=== PATIENT | female | born 1975 | race Caucasian/White ===

== ENCOUNTER → 2016-08-14 | Outpatient (CLI) | payer BC ==
[~2016-08-14] MED LIST: IBUP-103 PO; MULT-240 PO; PENI-82 PO
--- NOTE | 2016-08-14 15:21 | MAMMOGRAPHY REPORT ---
UNILATERAL RIGHT DIGITAL DIAGNOSTIC MAMMOGRAM TOMOSYNTHESIS WITH CAD AND TARGETED RIGHT ULTRASOUND: 08/14/2016 CLINICAL HISTORY: Follow-up of probably benign 17 x 8 mm asymmetry in the superior posterior right b reast, only seen on the MLO view. Patient denies any new concerns of palpable abnormalities, focal pain or other new clinical findings. TECHNIQUE: Right breast 2-D digital and tomosynthesis images, right exaggerated lateral CC views wer e obtained. Current study was also evaluated with a Computer Aided Detection (CAD) system. COMPARISON: Comparison is made to exams dated: 02/14/2016 ultrasound and 02/14/2016 mammogram - [facility]. BREAST COMPOSITION: There are scattered areas of fibroglandular density in the right breast. FINDINGS: The asymmetry in the posterior slightly superior right breast on the MLO view is less con spicuous on the current exam and has the appearance of normal dense fibroglandular tissue on the isac osynthesis images. There is no evidence of spiculation, architectural distortion or clustered micro calcification. No other mass, architectural distortion or cluster of microcalcifications is seen th roughout the visualized right breast. Targeted ultrasound was performed throughout the lateral right breast as well as the 2:00 to 4:00 ax es. Normal islands of dense fibronodular tissue are seen without a discrete solid or cystic mass. IMPRESSION: ACR-BI-RADS CATEGORY 3: PROBABLY BENIGN, TARGETED ULTRASOUND ACR-BI-RADS CATEGORY 3: UT OBABLY BENIGN The asymmetry in the superior posterior right breast, only seen on the MLO view has the appearance o f normal glandular tissue on the current exam and no suspicious sonographic abnormality is identifie d in the right breast. Nevertheless, given that this asymmetry was identified on the patient's base line, another short interval follow-up diagnostic right mammogram with possible ultrasound is recomm ended to ensure at least one year stability. Annual left mammography will be due at that time. The se results and recommendations were discussed with the patient at the time of the exam. Approximately 10% of breast cancers are not detected with mammography. A negative mammographic repor t should not delay biopsy if a clinically suggestive mass is present. Marce Melgoza M.D. ay/:08/14/2016 09:10:54 Manufacturing Tech: Ian CHU)(Jose), [facility] letter sent: Follow Up Recommended 3 BI-RADS Code: ACR-BI-RADS Category 3: Probably Benign Ultrasound BI-RADS: ACR-BI-RADS Category 3: P robably Benign
== END | disposition home or self-care (01) ==
LOC: C.MAMM 08:08
PROVIDERS: ATTEND Internal Medicine
DX: N64.89 Other specified disorders of breast (principal)

== ENCOUNTER 2016-08-31 15:29 | Emergency (ER) | payer OTHER, BC ==
[~2016-08-31] VITALS: Ht 160 cm; Wt 88.0 kg
[2016-08-31 15:37] VITALS: TEMP 37.1; Ht 160 cm; Wt 88.0 kg
[2016-08-31] MEDS ORDERED: MULT-240 PO (16:34)
[2016-08-31] MEDS ORDERED: IBUP-103 PO (16:34)
[2016-08-31] MEDS ORDERED: PENI-82 PO (16:34)
--- NOTE | 2016-08-31 16:34 | DIAGNOSTIC IMAGING REPORT ---
LEFT FOOT MIN 3 VIEWS ROUTINE CLINICAL HISTORY: left foot/ankle injury trauma. Pain. COMPARISON: None. DISCUSSION: The bones and joint spaces appear intact. There is no evidence of fracture, dislocation or bony disease. There is no evidence for soft tissue swelling. IMPRESSION: Negative study. Electronically signed by: Gregg Duarte M.D. 08/31/2016 4:33 PM Dictated Date/Time: 08/31/2016 4:33 PM
--- NOTE | 2016-08-31 16:34 | DIAGNOSTIC IMAGING REPORT ---
LEFT ANKLE MIN 3 VIEWS ROUTINE CLINICAL HISTORY: left foot/ankle injury trauma. Pain. COMPARISON: None. DISCUSSION: The bones and joint spaces appear intact. There is no evidence of fracture, dislocation or bony disease. There is no evidence for soft tissue swelling. IMPRESSION: Negative study. Electronically signed by: Gregg Duarte M.D. 08/31/2016 4:32 PM Dictated Date/Time: 08/31/2016 4:32 PM
--- NOTE | 2016-08-31 16:56 | EMERGENCY ROOM VISIT NOTE ---
ED Visit Note First contact with patient: 15:40 CHIEF COMPLAINT: Foot pain HISTORY OF PRESENT ILLNESS: This 40-year-old female patient presents to the emergency department ambulatory complaining of an injury to the right foot/ ankle. The patient states that prior to arrival, she stepped off a curb, inverting the right ankle. He reports pain in the outside of the ankle and the outside of the foot. She rates her discomfort as sharp and a 7/10. She took ibuprofen prior to arrival for relief of the pain. She denies any previous injuries to this ankle. She denies any numbness or weakness. She is able to walk but states it is difficult to do so. The patient is able to move all of their toes and their ankle without pain. REVIEW OF SYSTEMS: GENERAL: A 6 system review of systems was completed with positives and pertinent negatives in the HPI. ALLERGIES: No known drug allergies MEDICATIONS: No chronic medications PMH: No significant past medical history. SOCIAL HISTORY: The patient lives locally with family. Nonsmoker, admits to occasional alcohol use. PHYSICAL EXAM: Vital Signs: Reviewed Nurse's notes, vital signs stable. GENERAL : This is a 40-year-old female, in no acute distress, but appears in pain, well- developed, well-nourished. MUSCULOSKELETAL: There is no visual deformity of the left ankle/foot. There is no erythema or ecchymosis. There is tenderness and swelling over the lateral malleolus and lateral aspect of the proximal left foot. No tenderness of the proximal tib/fib. The range of motion of the ankle is full. There is no tenderness over the plantar fascia. The skin is intact and there are no lacerations or puncture wounds. Dorsalis pedis pulse 2+. Capillary refill less than 2 seconds. EMERGENCY DEPARTMENT COURSE: I examined the patient. X-rays of the left ankle and foot were reviewed by myself and radiology and reveal no acute fractures. The patient was placed in a gel ankle splint and instructed on the use of crutches. Conservative measures were discussed with the patient. She will follow-up with her primary care provider or orthopedics for continued pain. She verbalized understanding of my assessment and treatment plan. The patient was discharged home in good condition. DIAGNOSIS: Left ankle injury Current/Historical Medications Scheduled Multiple Vitamins W/ Minerals (Womens One Daily), 1 TAB PO DAILY Penicillin V Potassium (Veetids), 500 MG PO QID Scheduled PRN Ibuprofen Tab (Advil), 400-600 MG PO Q6H PRN for Pain Allergies Coded Allergies: No Known Allergies (Verified Allergy, Unknown, 11/23/02) Vital Signs Date Time Temp Pulse Resp B/P Pulse Ox O2 Delivery O2 Flow Rate FiO2 08/31/16 15:37 37.1 60 18 154/110 99 Departure Information Impression Primary Impression: Left ankle sprain Dispostion Home / Self-Care Condition GOOD Referrals Bao Herrera M.D. (PCP) Patient Instructions My [facility] Additional Instructions You have been treated in the Emergency Department for an Ankle sprain. For pain control, you can use the following ltzb-lmd-alndfit medicines (if >12 yo): - Regular strength (325mg/tab) Tylenol (acetaminophen) 2 tabs every 4-6 hours as needed. Do not exceed 12 tablets in a 24 hour period. Avoid taking more than 4 grams (4000 mg) of Tylenol per day. This includes any other sources of acetaminophen you may take on a regular basis. - Regular strength (200 mg/tab) Advil (ibuprofen) 1-2 tabs every 4-6 hours as needed. Do not exceed a dose of 3200 mg per day. If this is a recent injury (<24 hrs), ice can be applied to the area of pain for the first 3 days to help decrease pain and inflammation. Wear the ankle splint and use the crutches until you're able to bear weight without pain. Follow-up with your primary care provider or orthopedics if you have persistent pain in 1-2 weeks. Return to the Emergency Department if your current symptoms worsen despite treatment course outlined above, or if you develop any of the following symptoms : intractable pain despite aforementioned treatment course or new onset of numbness or tingling of the foot. Problem Qualifiers Primary Impression: Left ankle sprain Encounter type: initial encounter Involved ligament of ankle: unspecified ligament Qualified Codes: S93.402A - Sprain of unspecified ligament of left ankle, initial encounter
[2016-08-31 17:36] VITALS: BP 158/97; PULSE 62; O2SAT 100
== END 2016-08-31 17:38 | disposition home or self-care (01) ==
LOC: C.EDB 15:30 → C.EDD 17:38
DX: S93.402A Sprain of unspecified ligament of left ankle, initial encounter (principal); W10.1XXA Fall (on)(from) sidewalk curb, initial encounter

== ENCOUNTER → 2017-02-08 | Outpatient (CLI) | payer BC, OTHER | END | disposition home or self-care (01) | LOC: C.PAPS 14:03 | PROVIDERS: ATTEND Internal Medicine | DX: Z01.419 Encounter for gynecological examination (general) (routine) without abnormal findings (principal) ==

== ENCOUNTER → 2017-02-12 | Outpatient (CLI) | payer BC ==
--- NOTE | 2017-02-12 12:38 | MAMMOGRAPHY REPORT ---
BILATERAL DIGITAL DIAGNOSTIC MAMMOGRAM TOMOSYNTHESIS WITH CAD: 02/12/2017 CLINICAL HISTORY: Second follow-up of a probably benign asymmetry in the superior posterior right leyla ast on the MLO view. TECHNIQUE: Breast tomosynthesis in addition to standard 2D mammography was performed. Current study was also evaluated with a Computer Aided Detection (CAD) system. COMPARISON: Comparison is made to exams dated: 08/14/2016 ultrasound, 08/14/2016 mammogram, 02/14/2016 ult rasound, and 02/14/2016 mammogram - [facility]. BREAST COMPOSITION: There are scattered areas of fibroglandular density in both breasts. FINDINGS: The asymmetry in the superior posterior right breast on the MLO view is less conspicuous on the 2-D mammogram. There is no corresponding mass or other suspicious abnormality on the tomosynthe sis images. Overall, no suspicious mass, architectural distortion or cluster of suspicious microcalc ifications is seen bilaterally. IMPRESSION: ACR BI-RADS CATEGORY 2: BENIGN Less conspicuous asymmetry in the superior posterior right breast on the MLO view, confirming benigni ty. There is no mammographic evidence of malignancy in the breasts. A 1 year screening mammogram is recommended. The patient has been verbally notified of the results. Approximately 10% of breast cancers are not detected with mammography. A negative mammographic report should not delay biopsy if a clinically suggestive mass is present. Marce Melgoza M.D. ay/:02/12/2017 08:48:24 Disability Liaison Officer: Kassandra Floyd, [facility] letter sent: Normal 1/2 BI-RADS Code: ACR BI-RADS Category 2: Benign
== END | disposition home or self-care (01) ==
LOC: C.MAMM 08:07
PROVIDERS: ATTEND Internal Medicine
DX: R92.8 Other abnormal and inconclusive findings on diagnostic imaging of breast (principal)